=== PATIENT | female | born 1970 | race Caucasian/White ===

== ENCOUNTER 2021-01-16 21:26 | Observation (INO) ==
--- NOTE | 2021-01-16 21:55 | Emergency Department Note ---
Impression & Plan Left sided abdominal pain, Nausea & vomiting ED Provider Note INFORMANT: Patient ED PROVIDER(S): Nehemiah Jiménez MD CHIEF COMPLAINT: Abdominal pain PLAN: Disposition: Still patient Condition: Good Outpatient prescription management: none Referral: None MEDICAL DECISION MAKING: Patient presented emerged department with acute abdominal pain. She had some distention on physical examination. She was nauseated and vomiting. The patient had an IV established. She was given Dilaudid and Zofran. She was hydrated with normal saline. On reassessment she was feeling somewhat better. She still had some distention and discomfort but it was much improved. She had an unremarkable CBC and chemistry panel. The patient underwent CT imaging and there was concerns for gastric volvulus. I did consult with Dr. Cruz of general surgery. She asked for the patient have an NG tube placed for stomach decompression and a KUB performed. She also recommended repeat CT imaging. She did evaluate the patient in the ER. KUB revealed the NG tube to be in place. Repeat CT imaging is pending at this time. The case was signed out to Dr. Fatima at the change of shift. Please see his note for disposition and details. Triage Nursing notes reviewed and agree them. Vital Signs: reviewed and remarkable for no significant abnormalities Differential diagnosis: PUD, pancreatitis, biliary pathology, hernia, appendicitis, ovarian cyst, ovarian torsion, infections, diverticulitis, UTI, obstruction, mesenteric ischemia, aortic pathology, inflammatory bowel disease, renal colic, volvulus, constipation, as well as other pathologies. Diagnostics interpreted by me: ECG: none Cardiac Monitoring: Cardiac monitoring ordered by me: The patient was placed on continuous cardiac monitoring and observed. It revealed a normal sinus rhythm at 89 beats per minute without ectopy or evidence of dysrhythmia. Imaging studies: CT ABD/PELVIS: FINDINGS: Mild dependent changes seen at the lung bases. No pneumoperitoneum. No pneumatosis. No fractures within the visualized osseous structures. The unenhanced liver, gallbladder, adrenal glands, and kidneys are unremarkable. No renal stones or hydronephrosis. No retroperitoneal lymphadenopathy. Normal caliber abdominal aorta. There is a left retroaortic renal vein. The spleen and pancreatic tail are displaced inferiorly by the distended stomach. The stomach is fluid-filled and has abnormal configuration with the antrum overlying the gastric cardia. Therefore, this is concerning for a gastric volvulus. No dilated loops of small bowel identified. The bladder is unremarkable. Prior hysterec amos. Normal appendix. IMPRESSION: Distended and fluid-filled stomach with an abnormal configuration with the antrum overlying the gastric cardia. 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 Surgical consultation recommended. HPI: The patient is a 51 year old female who presents to the Emergency Room with complaints of abdominal pain. This started 2 hrs ago and is worsening. The patient also notes the following associated symptoms, nausea and vomiting. Pain seems to be worse on the left side. It does radiate towards her back. The patient has found no relieving factors. Current pain is rated as 8/10. Pt denies LOC, headache, fevers, chills, diaphoresis, visual changes, neck pain, chest pain, breathing difficulties, back pain, melena, hematochezia, urinary symptoms, numbness, weakness, lymphadenopathy, rash, or other complaints. ROS: See above HPI for pertinent positives & negatives. A total of 10 systems reviewed and were otherwise negative. PAST MEDICAL HISTORY:See Below , breast cancer, hypothyroidism PAST SURGICAL HISTORY:See Below, hysterectomy FAMILY HISTORY:See Below SOCIAL HISTORY:See Below, smoker HOME MEDICATIONS:See Below ALLERGIES:See Below VITALS:See Below PHYSICAL EXAMINATION: GENERAL: Awake, alert, uncomfortable-appearing, in a mild distress HENT: Normocephalic, atraumatic. Oropharynx unremarkable. EYES: Normal conjunctiva. Sclera non-icteric. NECK: Inspection normal. Non-tender. Supple. No nuchal rigidity. FROM. No masses. RESPIRATORY: Clear to auscultation. No wheezes. No rales. Normal respiratory effort. CARDIAC: Normal rate. Normal rhythm. No murmurs. No rubs. Extremities warm and well perfused. Pulses equal. No JVD. GI: Soft, mildly-distended. Diffuse tenderness to palpation. Mild rebound .mild guarding. No masses. RECTAL: Deferred. MUSCULOSKELETAL: Atraumatic. Chest examination reveals no tenderness. The back is symmetrical on inspection without obvious abnormality. There is no CVA tenderness to palpation. No joint edema. LOWER EXTREMITIES: Calves are equal size bilaterally and non-tender. No edema. No discoloration. NEURO: Normal sensorium. No sensory or motor deficits noted. SKIN: No rash or jaundice noted. 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 Beliefs That Will Affect Care: None Current Living Situation: Significant Other Feels Safe at Home: Yes Assistive Devices: None Allergies Allergies Allergy/AdvReac Type Severity Reaction Status Date / Time Penicillins Allergy Intermediate Hives Verified 01/16/21 22:17 Home Meds Home Medications Medication Instructions Recorded Confirmed Loly-D 24 Hour 1 tab PO QAM 01/16/21 01/16/21 levothyroxine [Synthroid] 50 mcg PO DAILY 01/16/21 01/16/21 topiramate 1.5 tab PO BID 01/16/21 01/16/21 Results & Data (ED) Vital Signs Vital Signs - 24 hr 01/16/21 21:32 01/16/21 22:12 01/16/21 22:14 Temperature 36.5 C Temperature Source Temporal Artery Scan Pulse Rate 84 81 Pulse Rate [Bilateral Apical] 81 Pulse Rate from SpO2 Sensor 79 Respiratory Rate 18 20 20 Respiratory Effort / Characteristics Non-Labored Spontaneous Respiratory Depth Normal Respiratory Pattern Regular Blood Pressure 150/82 H 125/95 Blood Pressure [Left Arm] 125/95 Blood Pressure Mean 104 105 Blood Pressure Mean [Left Arm] 105 Blood Pressure Position Sitting Pulse Oximetry 100 100 100 Oxygen Delivery Method Room Air Room Air Sepsis Recent Fever Within 48 Hours No Sepsis New/Unexplained Change in Mental Status N/A Sepsis Action Taken by Nursing No Action Required 01/16/21 22:16 01/16/21 22:44 01/16/21 22:47 Temperature Temperature Source Pulse Rate 80 95 H Pulse Rate [Bilateral Apical] 89 Pulse Rate from SpO2 Sensor 82 Respiratory Rate 15 20 20 Respiratory Effort / Characteristics Respiratory Depth Respiratory Pattern Blood Pressure Blood Pressure [Left Arm] 137/84 Blood Pressure Mean Blood Pressure Mean [Left Arm] 101 Blood Pressure Position Pulse Oximetry 100 99 Oxygen Delivery Method Room Air Sepsis Recent Fever Within 48 Hours Sepsis New/Unexplained Change in Mental Status Sepsis Action Taken by Nursing 01/16/21 22:48 01/16/21 23:00 01/16/21 23:30 Temperature Temperature Source Pulse Rate 87 80 93 H Pulse Rate [Bilateral Apical] Pulse Rate from SpO2 Sensor 89 82 92 H Respiratory Rate 16 16 17 Respiratory Effort / Characteristics Respiratory Depth Respiratory Pattern Blood Pressure 137/84 Blood Pressure [Left Arm] Blood Pressure Mean 101 Blood Pressure Mean [Left Arm] Blood Pressure Position Pulse Oximetry 99 100 99 Oxygen Delivery Method Sepsis Recent Fever Within 48 Hours Sepsis New/Unexplained Change in Mental Status Sepsis Action Taken by Nursing 01/17/21 01:05 01/17/21 01:08 01/17/21 01:30 Temperature Temperature Source Pulse Rate 98 H 94 H 74 Pulse Rate [Bilateral Apical] Pulse Rate from SpO2 Sensor 95 H Respiratory Rate 17 14 Respiratory Effort / Characteristics Respiratory Depth Respiratory Pattern Blood Pressure 141/97 H 126/77 Blood Pressure [Left Arm] Blood Pressure Mean 111 93 Blood Pressure Mean [Left Arm] Blood Pressure Position Pulse Oximetry 97 97 Oxygen Delivery Method Sepsis Recent Fever Within 48 Hours Sepsis New/Unexplained Change in Mental Status Sepsis Action Taken by Nursing 01/17/21 02:00 01/17/21 02:30 01/17/21 03:00 Temperature Temperature Source Pulse Rate 75 80 83 Pulse Rate [Bilateral Apical] Pulse Rate from SpO2 Sensor 75 81 Respiratory Rate 14 14 13 Respiratory Effort / Characteristics Respiratory Depth Respiratory Pattern Blood Pressure 142/89 H 127/81 111/73 Blood Pressure [Left Arm] Blood Pressure Mean 106 96 85 Blood Pressure Mean [Left Arm] Blood Pressure Position Pulse Oximetry 99 97 92 Oxygen Delivery Method Sepsis Recent Fever Within 48 Hours Sepsis New/Unexplained Change in Mental Status Sepsis Action Taken by Nursing 01/17/21 03:30 01/17/21 04:00 Temperature Temperature Source Pulse Rate 105 H 82 Pulse Rate [Bilateral Apical] Pulse Rate from SpO2 Sensor Respiratory Rate 18 14 Respiratory Effort / Characteristics Respiratory Depth Respiratory Pattern Blood Pressure 113/56 L 123/76 Blood Pressure [Left Arm] Blood Pressure Mean 75 91 Blood Pressure Mean [Left Arm] Blood Pressure Position Pulse Oximetry 97 98 Oxygen Delivery Method Sepsis Recent Fever Within 48 Hours Sepsis New/Unexplained Change in Mental Status Sepsis Action Taken by Nursing Laboratory Data Result diagrams: 01/17/21 11:10 01/17/21 11:08 Lab Results 01/16/21 01/16/21 01/16/21 Range/Units 21:59 21:59 23:45 WBC 8.45 (4.8-10.8) K/uL RBC 4.68 (4.2-5.4) M/uL Hgb 14.5 (12.0-16.0) g/dL Hct 41.7 (37-47) % MCV 89.1 (80-100) fL MCH 31.0 (25-34) pg MCHC 34.8 (32-36) g/dL RDW Std Deviation 39.2 (36.4-46.3) fL RDW Coeff of Quinn 12.2 (11.5-14.5) % Plt Count 290 (130-400) K/uL MPV 10.5 H (7.4-10.4) fL Immature Gran % (Auto) 0.1 % Neut % (Auto) 81.4 % Lymph % (Auto) 11.4 % Porter % (Auto) 5.9 % Eos % (Auto) 0.8 % Baso % (Auto) 0.4 % Neut # (Auto) 6.88 H (1.4-6.5) K/uL Lymph # (Auto) 0.96 L (1.2-3.4) K/uL Porter # (Auto) 0.50 (0.11-0.59) K/uL Eos # (Auto) 0.07 (0-0.5) K/uL Baso # (Auto) 0.03 (0-0.2) K/uL Immature Gran # (Auto) 0.01 (0.00-0.02) K/uL Sodium 143 (136-145) mmol/L Potassium 3.3 L (3.5-5.1) mmol/L Chloride 110 H (98-107) mmol/L Carbon Dioxide 27 (21-32) mmol/L Anion Gap 6.0 (3-11) BUN 24 H (7-18) mg/dl Creatinine 0.97 (0.6-1.2) mg/dl Est Cr Clr Drug Dosing 55.8 ml/min Est GFR ( Amer) 77.8 ml/min Est GFR (Non-Af Amer) 67.2 ml/min BUN/Creatinine Ratio 24.5 H (10-20) Glucose 115 H (70-99) mg/dl Calcium 9.6 (8.5-10.1) mg/dl Total Bilirubin 0.5 (0.2-1) mg/dl AST 11 L (15-37) U/L ALT 19 (12-78) U/L Alkaline Phosphatase 68 (45-117) U/L Total Protein 7.3 (6.4-8.2) gm/dl Albumin 4.1 (3.4-5.0) gm/dl Globulin 3.2 (2.5-4.0) gm/dl Albumin/Globulin Ratio 1.3 (0.9-2) Lipase 285 (73-393) U/L Urine Color Yellow Urine Appearance Turbid A (Clear) Urine pH 7.5 (4.5-7.5) Ur Specific [place] 1.013 (1.000-1.030) Urine Protein Negative (Negative) Urine Glucose (UA) Negative (Negative) Urine Ketones Negative (Negative) Urine Blood Negative (Negative) Urine Nitrite Negative (Negative) Urine Bilirubin Negative (Negative) Urine Urobilinogen Negative (Negative) Ur Leukocyte Esterase Negative (Negative) Urine WBC (Auto) 1-5 (0-5) /hpf Urine RBC (Auto) 0-4 (0-4) /hpf U Hyaline Cast (Auto) 0 (0-5) /lpf U Epithel Cells (Auto) >30 H (0-5) /lpf Urine Bacteria (Auto) Negative (Negative) Amorphous Sediment Present A (None Prsent) COVID-19 Eval Order SARS-CoV-2 (PCR) (Negative) 01/16/21 01/16/21 Range/Units 23:48 23:48 WBC (4.8-10.8) K/uL RBC (4.2-5.4) M/uL Hgb (12.0-16.0) g/dL Hct (37-47) % MCV (80-100) fL MCH (25-34) pg MCHC (32-36) g/dL RDW Std Deviation (36.4-46.3) fL RDW Coeff of Quinn (11.5-14.5) % Plt Count (130-400) K/uL MPV (7.4-10.4) fL Immature Gran % (Auto) % Neut % (Auto) % Lymph % (Auto) % Porter % (Auto) % Eos % (Auto) % Baso % (Auto) % Neut # (Auto) (1.4-6.5) K/uL Lymph # (Auto) (1.2-3.4) K/uL Porter # (Auto) (0.11-0.59) K/uL Eos # (Auto) (0-0.5) K/uL Baso # (Auto) (0-0.2) K/uL Immature Gran # (Auto) (0.00-0.02) K/uL Sodium (136-145) mmol/L Potassium (3.5-5.1) mmol/L Chloride (98-107) mmol/L Carbon Dioxide (21-32) mmol/L Anion Gap (3-11) BUN (7-18) mg/dl Creatinine (0.6-1.2) mg/dl Est Cr Clr Drug Dosing ml/min Est GFR ( Amer) ml/min Est GFR (Non-Af Amer) ml/min BUN/Creatinine Ratio (10-20) Glucose (70-99) mg/dl Calcium (8.5-10.1) mg/dl Total Bilirubin (0.2-1) mg/dl AST (15-37) U/L ALT (12-78) U/L Alkaline Phosphatase (45-117) U/L Total Protein (6.4-8.2) gm/dl Albumin (3.4-5.0) gm/dl Globulin (2.5-4.0) gm/dl Albumin/Globulin Ratio (0.9-2) Lipase (73-393) U/L Urine Color Urine Appearance (Clear) Urine pH (4.5-7.5) Ur Specific [place] (1.000-1.030) Urine Protein (Negative) Urine Glucose (UA) (Negative) Urine Ketones (Negative) Urine Blood (Negative) Urine Nitrite (Negative) Urine Bilirubin (Negative) Urine Urobilinogen (Negative) Ur Leukocyte Esterase (Negative) Urine WBC (Auto) (0-5) /hpf Urine RBC (Auto) (0-4) /hpf U Hyaline Cast (Auto) (0-5) /lpf U Epithel Cells (Auto) (0-5) /lpf Urine Bacteria (Auto) (Negative) Amorphous Sediment (None Prsent) COVID-19 Eval Order Covid19 at [facility] SARS-CoV-2 (PCR) NEGATIVE (Negative) Administered Medications Discontinued Medications Diphenhydramine HCl (Diphenhydramine 50 Mg/Ml Vial) 12.5 mg IV NOW STA Stop: 01/17/21 10:34 Last Admin: 01/17/21 11:02 Dose: 12.5 mg Documented by: [id number] Hydromorphone HCl (Hydromorphone Inj 0.5 Mg/0.5 Ml Syr) 0.5 mg IV Q15M PRN PRN Reason: Pain Stop: 01/30/21 21:55 Last Admin: 01/17/21 00:53 Dose: 0.5 mg Documented by: [id number] Admin: 01/16/21 22:08 Dose: 0.5 mg Documented by: [id number] Hydromorphone HCl (Hydromorphone Inj 0.5 Mg/0.5 Ml Syr) 0.5 mg IV NOW STA Stop: 01/17/21 04:48 Last Admin: 01/17/21 04:51 Dose: 0.5 mg Documented by: [id number] Hydromorphone HCl (Hydromorphone Inj 0.5 Mg/0.5 Ml Syr) 0.25 mg IV Q4H PRN PRN Reason: Severe Pain Stop: 01/31/21 06:31 Last Admin: 01/17/21 08:30 Dose: 0.25 mg Documented by: [id number] Sodium Chloride (Nss 1000ml) 1,000 mls @ 999 mls/hr IV .Q1H1M STA Stop: 01/16/21 22:56 Last Infusion: 01/16/21 23:36 Dose: 0 mls/hr Documented by: [id number] Admin: 01/16/21 22:08 Dose: 999 mls/hr Documented by: [id number] Lorazepam (Ativan) 0.5 mg in 1 mls @ 1 mls/min IV NOW STA Stop: 01/17/21 02:05 Last Admin: 01/17/21 02:13 Dose: 1 mls/min Documented by: [id number] Famotidine 20 mg/ Syringe 5 mls @ 2.5 mls/min IV Q12H LENORA Stop: 02/16/21 07:59 Last Admin: 01/17/21 08:26 Dose: 2.5 mls/min Documented by: [id number] Potassium Chloride/Sodium Chloride (Normal Saline W/20 Meq Kcl) 20 meq in 1,000 mls @ 100 mls/hr IV .Q10H LENORA Stop: 02/16/21 06:59 Last Admin: 01/17/21 08:21 Dose: 100 mls/hr Documented by: [id number] Morphine Sulfate (Morphine Sulfate 2 Mg/Ml Carp) 1 mg IV NOW STA Stop: 01/17/21 10:35 Last Admin: 01/17/21 11:02 Dose: 1 mg Documented by: [id number] Ondansetron HCl (Ondansetron Inj 2 Mg/Ml 2 Ml Vial) 4 mg IV NOW STA Stop: 01/16/21 21:57 Last Admin: 01/16/21 22:08 Dose: 4 mg Documented by: [id number] Ondansetron HCl (Ondansetron Inj 2 Mg/Ml 2 Ml Vial) 4 mg IV Q6H PRN PRN Reason: Nausea Stop: 02/16/21 06:31 Last Admin: 01/17/21 08:31 Dose: 4 mg Documented by: [id number] Imaging Data Radiologist's Impression: KUB X-Ray 01/16/21 23:27 KUB HISTORY: Status post placement of an enteric tube NGT placement COMPARISON: CT abdomen and pelvis 01/17/2021 FINDINGS: Status post placement of an enteric tube, distal tip projected superiorly within the left midabdomen. Nonobstructive bowel gas pattern. The lower abdomen is outside the field of view. Roots of the left axilla. No renal calculi. No ureteral calculi. No pneumoperitoneum or pneumatosis. No fracture. IMPRESSION: Status post placement of an enteric tube with distal tip in the expected location of the gastric body. ACT 112: Negative or not required by law. The above report was generated using voice recognition software. It may contain grammatical, syntax or spelling errors. Electronically signed by: Thomas Payton M.D. 01/17/2021 7:42 AM Abdomen/Pelvis CT 01/17/21 00:[address] WITHOUT CONTRAST CT DOSE: 432.12 mGy.cm HISTORY: Follow up study in a patient with suggested gastric volvulus. Status post placement of an enteric tube Eval after NG tube placement for suspected gastric TECHNIQUE: Multiaxial CT images of the abdomen and pelvis were performed without contrast. A dose lowering technique was utilized adhering to the principles of ALARA. COMPARISON STUDY: CT abdomen pelvis 01/16/2021 FINDINGS: The imaged inferior cardiac chambers are unremarkable. Mild bibasilar atelectasis. No pneumatosis or pneumoperitoneum. Trace perisplenic ascites. The spleen is slightly displaced 5 abnormally positioned stomach. The pancreas, adrenal glands, gallbladder and liver appear unremarkable. Unremarkable liver k idneys, and urinary bladder. Hysterectomy. No adnexal mass lesion. Aorta and IVC are unremarkable. No adenopathy. Volvulus of the stomach is redemonstrated with a suggested mesentero-axial configuration. Mild inflammatory stranding surrounds the stomach. Status post placement of an enteric tube with distal tip in the region of the gastric body. Slightly decreased gastric distention. No bowel obstruction or bowel wall thickening. Normal appendix. Unremarkable soft tissues and breast parenchyma. No acute fracture. IMPRESSION: 1. 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 Status post placement of an enteric tube terminating within the gastric body. There is slightly decreased gastric distention. 2. Mild stranding surrounding the stomach with trace left upper quadrant abdominal ascites. ACT 112: Negative or not required by law. The above report was generated using voice recognition software. It may contain grammatical, syntax or spelling errors. Electronically signed by: Thomas Payton M.D. 01/17/2021 9:35 AM Discharge Plan Visit Data Chief Complaint: Abdominal Pain Stated Complaint: ABDOMINAL PAIN, ABDOMEN DISTENDED ED Provider: Yvon Fatima Discharge Problem: Left sided abdominal pain, Nausea & vomiting Patient Disposition: Admitted As Inpatient Discharge Instructions Interventions: ED Discharge Assessment Last Done: 01/17/21 05:14
[2021-01-16] MEDS ORDERED: ONDANSETRON INJ 2 MG/ML 2 ML VIAL IV STA (21:56)
[2021-01-16] MEDS ORDERED: SODIUM CHLORIDE 0.9% 1,000 ML IV STA (21:56)
[2021-01-16] MEDS: HYDROmorphone INJ 0.5 MG/0.5 ML SYR IV PRN (22:08)
[2021-01-16 22:22] LABS: Basophils # (auto) 0.03 K/uL (0-0.2); Basophils % (auto) 0.4 %; Eosinophils # (auto) 0.07 K/uL (0-0.5); Eosinophils % (auto) 0.8 %; Hematocrit (blood only) 41.7 % (37-47); Hemoglobin 14.5 g/dL (12.0-16.0); Immature Granulocytes # (auto) 0.01 K/uL (0.00-0.02); Immature Granulocytes % (auto) 0.1 %; Lymphocytes # (auto) 0.96 K/uL (1.2-3.4); Lymphocytes % (auto) 11.4 %; Mean Corpuscular Hgb Conc 34.8 g/dL (32-36); Mean Corpuscular Volume 89.1 fL (80-100); Mean Platelet Volume 10.5 fL (7.4-10.4); Monocytes % (auto) 5.9 %; Neutrophils # (auto) 6.88 K/uL (1.4-6.5); Neutrophils % (auto) 81.4 %; Platelet Count 290 K/uL (130-400); RDW Coefficient of Variation 12.2 % (11.5-14.5); RDW Standard Deviation 39.2 fL (36.4-46.3); Red Blood Count 4.68 M/uL (4.2-5.4); White Blood Count 8.45 K/uL (4.8-10.8)
[2021-01-16 22:43] LABS: Albumin Level 4.1 gm/dl (3.4-5.0); BUN Creatinine Ratio 24.5 (10-20); Calcium 9.6 mg/dl (8.5-10.1); Creatinine Clr Calc Pharmacy 55.8 ml/min; Est GFR (African American) 77.8 ml/min; Est GFR (Non-African American) 67.2 ml/min; Potassium 3.3 mmol/L (3.5-5.1)
[2021-01-16 22:45] LABS: Albumin Globulin Ratio 1.3 (0.9-2); Bilirubin,Total 0.5 mg/dl (0.2-1); Globulin 3.2 gm/dl (2.5-4.0); Total Protein 7.3 gm/dl (6.4-8.2)
--- NOTE | 2021-01-16 23:03 | CT Scan Report ---
ABDOMEN AND PELVIS CT WITHOUT CONTRAST CT DOSE: 387.54 mGy.cm HISTORY: nausea, left sided abd pain, vomiting TECHNIQUE: Multiaxial CT images of the abdomen and pelvis were performed without contrast. A dose lo wering technique was utilized adhering to the principles of ALARA. COMPARISON STUDY: None. FINDINGS: Mild dependent changes seen at the lung bases. No pneumoperitoneum. No pneumatosis. No frac tures within the visualized osseous structures. The unenhanced liver, gallbladder, adrenal glands, an d kidneys are unremarkable. No renal stones or hydronephrosis. No retroperitoneal lymphadenopathy. No rmal caliber abdominal aorta. There is a left retroaortic renal vein. The spleen and pancreatic tail are displaced inferiorly by the distended stomach. The stomach is fluid-filled and has abnormal confi guration with the antrum overlying the gastric cardia. Therefore, this is concerning for a gastric vo lvulus. No dilated loops of small bowel identified. The bladder is unremarkable. Prior hysterectomy. Normal appendix. IMPRESSION: Distended and fluid-filled stomach with an abnormal configuration with the antrum overlying the gastr ic cardia. 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 Surgical consultation recommended. ACT 112: Negative or not required by law. Electronically signed by: Braulio Fontanez M.D. 01/16/2021 11:01 PM
[2021-01-17 00:14] LABS: Appearance Urine Turbid (Clear); Bacteria Urine Automated Negative (Negative); Bilirubin Urine Negative (Negative); Blood Urine Negative (Negative); Color Urine Yellow; Epithelial Cell Urine Auto >30 /lpf (0-5); Glucose Urine UA Negative (Negative); Ketones Urine Negative (Negative); Leukocyte Esterase Urine Negative (Negative); Nitrite Urine Negative (Negative); Protein Urine Negative (Negative); Specific Gravity Urine 1.013 (1.000-1.030); Urobilinogen Urine Negative (Negative); pH Urine 7.5 (4.5-7.5)
--- NOTE | 2021-01-17 00:15 | Consultation ---
Date of Consultation January 17, 2021 Assessment & Plan (1) Acute gastric volvulus: Discussed imaging findings with patient and . While there is no clinical sign of ischemia yet on labs, she is very tender and concern for ischemia developing remains. Reviewed the use of nasogastric decompression and my recommendation for surgical intervention with reduction of the volvulus and gastropexy with gastrostomy tube. Reviewed that the tube would need to stay in for at least 6 weeks prior to removal to allow for the stomach to stick to the anterior abdominal wall. Discussed the possibility of endoscopic decompression but that this is generally reserved for patients who are too high risk for surgery and carries a risk of gastric perforation. As she is reluctant to have surgery here (would prefer closer to home), we discussed ng placement and then repeating the CT scan. If better and volvulus spontaneously reduces with ng decompression, can admit here and watch for a day or two. If still present, she should strongly consider surgery - either here or closer to home. Risk of waiting (ischemia leading to a larger operation with need for partial gastrectomy) discussed. All questions answered. Present on Admission?: Yes (2) Left sided abdominal pain: Due to gastric volvulus. Present on Admission?: Yes (3) Nausea & vomiting: NG decompression Present on Admission?: Yes History of Present Illness Requesting Physician: Nehemiah Jiménez MD Reason for Consultation: gastric volvulus History of Present Illness 51 yr old woman who presents with acute onset of upper abdominal pain. Started earlier this evening, crampy, located in bilateral upper abdomens. Thought she had a stomachache. They drove out from [place] and when stopped to get food along the way, the pain got worse. This continued with a feeling of fullness and feeling like the food was refluxing back into esophagus. When they arrived at the cabin, she thought she would try to vomit. After she bent over, she could not straighten back up with 10/10, sharp, cramping abdominal pain under both ribcages. Took her breath away, no similar episodes before. Came to ER for evaluation. No fevers/ chills. No change in bowel habits. She has received pain meds and pain is now 3-4/10 at rest, 5- 6/10 with movement. Allergies Allergy/AdvReac Type Severity Reaction Status Date / Time Penicillins Allergy Intermediate Hives Verified 01/16/21 22:17 Home Medications Medication Instructions Recorded Confirmed Type fexofenadine-pseudoephedrine 1 tab PO QAM 01/16/21 01/16/21 History [Loly-D 24 Hour] levothyroxine [Synthroid] 50 mcg PO DAILY 01/16/21 01/16/21 History topiramate 1.5 tab PO BID 01/16/21 01/16/21 History Patient History Medical History (Updated 01/17/21 @ 00:22 by Cassandra Curz MD) Breast cancer Surgical History (Updated 01/17/21 @ 00:21 by Cassandra Cruz MD) H/O: hysterectomy Previous section S/P lumpectomy of breast Social History Smoking Status: Current every day smoker Tobacco Type: Cigarettes Preferred Language: Occitan Feels Safe at Home: Yes Review of Systems Review of Systems: All systems reviewed & are unremarkable except as noted in HPI & below Physical Exam Constitutional: WD/WN, vitals as above Eyes: PERRL, conjunctivae normal, anicteric sclerae Neck: trachea midline Respiratory: normal respiratory effort, lungs clear to auscultation Cardiovascular: RRR, no murmur, no edema Gastrointestinal (Abdomen): Inspection/Auscultation: abdomen normal to inspection and normal bowel sounds; abdomen not distended Percussion/Palpation: + abdomen tender (LUQ and LLQ), + guarding (LUQ) and abdomen soft; no hernia Musculoskeletal: no cyanosis or clubbing, extremities motor strength 5/5 Neurologic: CN's II-XI intact bilaterally and awake; no focal motor deficits Psychiatric: A+Ox3, euthymic affect Results & Data ([facility]) Vital Signs (Past 12 Hours) Vital Signs Temp Pulse Pulse Resp BP BP Pulse Ox 01/16/21 22:47 89 20 137/84 99 01/16/21 22:14 81 20 125/95 100 01/16/21 21:32 36.5 C 84 18 150/82 H 100 Laboratory Results 01/16/21 01/16/21 01/16/21 Range/Units 23:48 23:48 23:45 WBC (4.8-10.8) K/uL RBC (4.2-5.4) M/uL Hgb (12.0-16.0) g/dL Hct (37-47) % MCV (80-100) fL MCH (25-34) pg MCHC (32-36) g/dL RDW Std Deviation (36.4-46.3) fL RDW Coeff of Quinn (11.5-14.5) % Plt Count (130-400) K/uL MPV (7.4-10.4) fL Immature Gran % (Auto) % Neut % (Auto) % Lymph % (Auto) % [place] % (Auto) % Eos % (Auto) % Baso % (Auto) % Neut # (Auto) (1.4-6.5) K/uL Lymph # (Auto) (1.2-3.4) K/uL [place] # (Auto) (0.11-0.59) K/uL Eos # (Auto) (0-0.5) K/uL Baso # (Auto) (0-0.2) K/uL Immature Gran # (Auto) (0.00-0.02) K/uL Sodium (136-145) mmol/L Potassium (3.5-5.1) mmol/L Chloride (98-107) mmol/L Carbon Dioxide (21-32) mmol/L Anion Gap (3-11) BUN (7-18) mg/dl Creatinine (0.6-1.2) mg/dl Est Cr Clr Drug Dosing ml/min Est GFR ( Amer) ml/min Est GFR (Non-Af Amer) ml/min BUN/Creatinine Ratio (10-20) Glucose (70-99) mg/dl Calcium (8.5-10.1) mg/dl Total Bilirubin (0.2-1) mg/dl AST (15-37) U/L ALT (12-78) U/L Alkaline Phosphatase (45-117) U/L Total Protein (6.4-8.2) gm/dl Albumin (3.4-5.0) gm/dl Globulin (2.5-4.0) gm/dl Albumin/Globulin Ratio (0.9-2) Lipase (73-393) U/L Urine Color Yellow Urine Appearance Turbid A (Clear) Urine pH 7.5 (4.5-7.5) Ur Specific [place] 1.013 (1.000-1.030) Urine Protein Negative (Negative) Urine Glucose (UA) Negative (Negative) Urine Ketones Negative (Negative) Urine Blood Negative (Negative) Urine Nitrite Negative (Negative) Urine Bilirubin Negative (Negative) Urine Urobilinogen Negative (Negative) Ur Leukocyte Esterase Negative (Negative) Urine WBC (Auto) Pending Urine RBC (Auto) Pending U Hyaline Cast (Auto) Pending U Epithel Cells (Auto) Pending Urine Bacteria (Auto) Pending COVID-19 Eval Order Covid19 at [facility] SARS-CoV-2 (PCR) Pending 01/16/21 01/16/21 Range/Units 21:59 21:59 WBC 8.45 (4.8-10.8) K/uL RBC 4.68 (4.2-5.4) M/uL Hgb 14.5 (12.0-16.0) g/dL Hct 41.7 (37-47) % MCV 89.1 (80-100) fL MCH 31.0 (25-34) pg MCHC 34.8 (32-36) g/dL RDW Std Deviation 39.2 (36.4-46.3) fL RDW Coeff of Quinn 12.2 (11.5-14.5) % Plt Count 290 (130-400) K/uL MPV 10.5 H (7.4-10.4) fL Immature Gran % (Auto) 0.1 % Neut % (Auto) 81.4 % Lymph % (Auto) 11.4 % [place] % (Auto) 5.9 % Eos % (Auto) 0.8 % Baso % (Auto) 0.4 % Neut # (Auto) 6.88 H (1.4-6.5) K/uL Lymph # (Auto) 0.96 L (1.2-3.4) K/uL [place] # (Auto) 0.50 (0.11-0.59) K/uL Eos # (Auto) 0.07 (0-0.5) K/uL Baso # (Auto) 0.03 (0-0.2) K/uL Immature Gran # (Auto) 0.01 (0.00-0.02) K/uL Sodium 143 (136-145) mmol/L Potassium 3.3 L (3.5-5.1) mmol/L Chloride 110 H (98-107) mmol/L Carbon Dioxide 27 (21-32) mmol/L Anion Gap 6.0 (3-11) BUN 24 H (7-18) mg/dl Creatinine 0.97 (0.6-1.2) mg/dl Est Cr Clr Drug Dosing 55.8 ml/min Est GFR ( Amer) 77.8 ml/min Est GFR (Non-Af Amer) 67.2 ml/min BUN/Creatinine Ratio 24.5 H (10-20) Glucose 115 H (70-99) mg/dl Calcium 9.6 (8.5-10.1) mg/dl Total Bilirubin 0.5 (0.2-1) mg/dl AST 11 L (15-37) U/L ALT 19 (12-78) U/L Alkaline Phosphatase 68 (45-117) U/L Total Protein 7.3 (6.4-8.2) gm/dl Albumin 4.1 (3.4-5.0) gm/dl Globulin 3.2 (2.5-4.0) gm/dl Albumin/Globulin Ratio 1.3 (0.9-2) Lipase 285 (73-393) U/L Urine Color Urine Appearance (Clear) Urine pH (4.5-7.5) Ur Specific [place] (1.000-1.030) Urine Protein (Negative) Urine Glucose (UA) (Negative) Urine Ketones (Negative) Urine Blood (Negative) Urine Nitrite (Negative) Urine Bilirubin (Negative) Urine Urobilinogen (Negative) Ur Leukocyte Esterase (Negative) Urine WBC (Auto) Urine RBC (Auto) U Hyaline Cast (Auto) U Epithel Cells (Auto) Urine Bacteria (Auto) COVID-19 Eval Order SARS-CoV-2 (PCR) Diagnostic Findings CT scan abdomen/ pelvis personally reviewed with pt - shows a distended fluid filled stomach with possible gastric volvulus, no perforation
[2021-01-17 00:29] LABS: Amorphous Sediment Urine Present (None Prsent); RBC Urine Automated 0-4 /hpf (0-4)
[2021-01-17 00:31] LABS: Cast Urine Automated 0 /lpf (0-5)
--- NOTE | 2021-01-17 00:46 | Emergency Department Note ---
ED Visit Note ED Physician Sign Out Note: 51 yr old female evaluated and diagnosed by Dr Jiménez with Gastric Volvulus. She was seen by Gen Surg and NG tube placed. She was signed out to me pending repeat CT a/p with plan for me to contact Dr Cruz (who has already seen patient) to determine disposition. Patient evaluated and just receiving Dilaudid for nasal discomfort. Notes abdominal discomfort/nausea much improved. En route to CT. "CT ABDOMEN & PELVIS Without Contrast: Comparison to January 17, 2021. There is a nasogastric tube extending into the stomach which is less distended than on the comparison study. There is an abnormal horizontal configuration of the stomach without signs of obstruction of the gastric inflow or outflow to suggest volvulus at this point in time. Moderate amount of stool in the cecum measuring 6 cm possible mild constipation. The appendix is normal. Mild gaseous distention of large and small bowel loops suggest mild ileus. No focal bowel wall inflammation is seen. The liver, gallbladder, spleen, pancreas, adrenal glands, and kidneys appear within normal limits. Skeletal structures appear within normal limits. Radiologist: Zachariah Christopher MD" Patient re-evaluated on return of CT results and notes some nasal discomfort and anxious but otherwise OK. Given small dose ativan for comfort. Reviewed CT findings with Dr Cruz who notes that patient should be admitted to medicine with GI evaluation for possible scope to rule out obstruction. Patient and comfortable with this plan. I consulted Dr Chung for further management. Patient given some dialudid PRN for discomfort from NG tube. No return of abdominal pain and CT did confirm NG tube in stomach. Yvon Fatima MD
[2021-01-17] MEDS: HYDROmorphone INJ 0.5 MG/0.5 ML SYR IV PRN (00:53)
[2021-01-17] MEDS ORDERED: LORazepam 0.5 MG/1 ML VIAL IV STA (02:04)
--- NOTE | 2021-01-17 04:11 | History & Physical Report ---
Date of Service January 17, 2021 Assessment & Plan (1) Acute gastric volvulus: Acute gastric volvulus/mild ileus- Initial CT of abdomen and pelvis suggested acute gastric volvulus. Patient then had NG tube placed to low intermittent suction. Repeat CT suggested a mild ileus and possible distal constipation. Patient had been given Dilaudid IV and Ativan IV by the ED with improvement in symptoms. Admit to medical surgical floor NPO NSS + KCl 20 mEq at 100 mils per hour Zofran 4 mg IV every 6 hours as needed Famotidine 20 mg IV every 12 hours Acetaminophen 1 g IV every 8 hours as needed mild pain or fever Dilaudid 0.25 mg IV every 4 hours as needed severe pain Consult general surgery Consult gastroenterology Patient is from [facility], and will return to that area for any definitive treatment if needed Present on Admission?: Yes (2) Ileus: See above Present on Admission?: Yes (3) Nausea & vomiting: See above Present on Admission?: Yes (4) Hypokalemia: Placed on IV fluids as noted, and repeat labs in a.m. Present on Admission?: Yes (5) Previous section: History of previous C-sections x2 Present on Admission?: Yes (6) Hypothyroidism: Hold levothyroxine at this time Present on Admission?: Yes History of Present Illness Chief Complaint: The patient presents to the emergency department with acute onset of severe abdominal pain, with urge to have a bowel movement, but being unable to do so. Primary Care Provider: NO PCP The patient is a 51-year-old female with a past medical history including hypothyroidism and allergic rhinitis, who was traveling with her from [place], [place] to a local [place] to go [place] hunting. Her , who relays the history, reports that on their trip, they had stopped at a [employer], where she ate a few small pieces of food. Upon arrival, patient reported she had to go to the bathroom, but was unable to move her bowels, and due to the severity of pain, asked that she be taken to the emergency department. Work-up in the emergency department initially included a CT scan of abdomen pelvis which suggested a possible gastric volvulus. The patient then had an NG tube placed to low intermittent suction, and repeat CT scan was more suggestive of a mild ileus and constipation. General surgical consult recommended the patient be assessed by gastroenterology for possible endoscopic treatment if symptoms persisted. Allergies Allergy/AdvReac Type Severity Reaction Status Date / Time Penicillins Allergy Intermediate Hives Verified 01/16/21 22:17 Home Medications Medication Instructions Recorded Confirmed Type fexofenadine-pseudoephedrine 1 tab PO QAM 01/16/21 01/16/21 History [Loly-D 24 Hour] levothyroxine [Synthroid] 50 mcg PO DAILY 01/16/21 01/16/21 History topiramate 1.5 tab PO BID 01/16/21 01/16/21 History Past Med/Surg History Medical History (Updated 01/17/21 @ 05:20 by Vikas Chung MD) Breast cancer Hypothyroidism Surgical History (Updated 01/17/21 @ 05:16 by Vikas Chung MD) H/O: hysterectomy Previous section S/P lumpectomy of breast Social History Smoking Status: Current every day smoker Tobacco Type: Cigarettes Preferred Language: Greek Feels Safe at Home: Yes Review of Systems Review of Systems: The reports the patient was in her usual state of health until the symptoms of severe abdominal pain began upon arrival to the [facility]. She has been sedated due to severity of her pain, and therefore HPI and review of systems is limited by what her can relay. Physical Exam Physical Exam: The patient is awake, but somewhat sedated, well developed and well nourished, normocephalic and atraumatic, lying in bed and in no acute distress after receiving Dilaudid IV and Ativan IV from the ED HEENT--PERRL, EOMI, mucous membranes and oropharynx dry. Neck--supple. No JVD. No bruits. Thyroid normal, trachea midline, no adenopathy. Heart--normal S1 and S2. No murmurs, rubs or gallops. Lungs--clear bilaterally, no respiratory distress, no accessory muscle use. Abdomen--decreased bowel sounds. Generalized abdominal tenderness. Mildly distended. Extremities--no cyanosis or clubbing. No edema. Dermatologic--normal skin turgor, normal color, no abnormal lymph nodes, no rash. Neurologic--cranial nerves II through XII grossly intact. Rheumatologic--limited exam Psychiatric--sedated due to pain Results & Data Results & Data ([facility]) Vital Signs (Past 12 Hours) Vital Signs Temp Pulse Pulse Resp BP BP Pulse Ox 01/17/21 04:00 82 14 123/76 98 01/17/21 03:30 105 H 18 113/56 L 97 01/17/21 03:00 83 13 111/73 92 01/17/21 02:30 80 14 127/81 97 01/17/21 02:00 75 14 142/89 H 99 01/17/21 01:30 74 14 126/77 97 01/17/21 01:08 94 H 17 141/97 H 97 01/17/21 01:05 98 H 01/16/21 23:30 93 H 17 99 01/16/21 23:00 80 16 100 01/16/21 22:48 87 16 137/84 99 01/16/21 22:47 89 20 137/84 99 01/16/21 22:44 95 H 20 01/16/21 22:16 80 15 100 01/16/21 22:14 81 20 125/95 100 01/16/21 22:12 81 20 125/95 100 01/16/21 21:32 97.7 F 84 18 150/82 H 100 Laboratory Results Laboratory Results WBC 8.45 K/uL (4.8-10.8) 01/16/21 21:59 RBC 4.68 M/uL (4.2-5.4) 01/16/21 21:59 Hgb 14.5 g/dL (12.0-16.0) 01/16/21 21:59 Hct 41.7 % (37-47) 01/16/21 21:59 MCV 89.1 fL (80-100) 01/16/21 21:59 MCH 31.0 pg (25-34) 01/16/21 21:59 MCHC 34.8 g/dL (32-36) 01/16/21 21:59 RDW Std Deviation 39.2 fL (36.4-46.3) 01/16/21 21:59 RDW Coeff of Quinn 12.2 % (11.5-14.5) 01/16/21 21:59 Plt Count 290 K/uL (130-400) 01/16/21 21:59 MPV 10.5 fL (7.4-10.4) H 01/16/21 21:59 Immature Gran % (Auto) 0.1 % 01/16/21 21:59 Neut % (Auto) 81.4 % 01/16/21 21:59 Lymph % (Auto) 11.4 % 01/16/21 21:59 [place] % (Auto) 5.9 % 01/16/21 21:59 Eos % (Auto) 0.8 % 01/16/21 21:59 Baso % (Auto) 0.4 % 01/16/21 21:59 Neut # (Auto) 6.88 K/uL (1.4-6.5) H 01/16/21 21:59 Lymph # (Auto) 0.96 K/uL (1.2-3.4) L 01/16/21 21:59 [place] # (Auto) 0.50 K/uL (0.11-0.59) 01/16/21 21:59 Eos # (Auto) 0.07 K/uL (0-0.5) 01/16/21 21:59 Baso # (Auto) 0.03 K/uL (0-0.2) 01/16/21 21:59 Immature Gran # (Auto) 0.01 K/uL (0.00-0.02) 01/16/21 21:59 Sodium 143 mmol/L (136-145) 01/16/21 21:59 Potassium 3.3 mmol/L (3.5-5.1) L 01/16/21 21:59 Chloride 110 mmol/L (98-107) H 01/16/21 21:59 Carbon Dioxide 27 mmol/L (21-32) 01/16/21 21:59 Anion Gap 6.0 (3-11) 01/16/21 21:59 BUN 24 mg/dl (7-18) H 01/16/21 21:59 Creatinine 0.97 mg/dl (0.6-1.2) 01/16/21 21:59 Est Cr Clr Drug Dosing 55.8 ml/min 01/16/21 21:59 Est GFR ( Amer) 77.8 ml/min 01/16/21 21:59 Est GFR (Non-Af Amer) 67.2 ml/min 01/16/21 21:59 BUN/Creatinine Ratio 24.5 (10-20) H 01/16/21 21:59 Glucose 115 mg/dl (70-99) H 01/16/21 21:59 Calcium 9.6 mg/dl (8.5-10.1) 01/16/21 21:59 Total Bilirubin 0.5 mg/dl (0.2-1) 01/16/21 21:59 AST 11 U/L (15-37) L 01/16/21 21:59 ALT 19 U/L (12-78) 01/16/21 21:59 Alkaline Phosphatase 68 U/L (45-117) 01/16/21 21:59 Total Protein 7.3 gm/dl (6.4-8.2) 01/16/21 21:59 Albumin 4.1 gm/dl (3.4-5.0) 01/16/21 21:59 Globulin 3.2 gm/dl (2.5-4.0) 01/16/21 21:59 Albumin/Globulin Ratio 1.3 (0.9-2) 01/16/21 21:59 Lipase 285 U/L (73-393) 01/16/21 21:59 Urine Color Yellow 01/16/21 23:45 Urine Appearance Turbid (Clear) A 01/16/21 23:45 Urine pH 7.5 (4.5-7.5) 01/16/21 23:45 Ur Specific [place] 1.013 (1.000-1.030) 01/16/21 23:45 Urine Protein Negative (Negative) 01/16/21 23:45 Urine Glucose (UA) Negative (Negative) 01/16/21 23:45 Urine Ketones Negative (Negative) 01/16/21 23:45 Urine Blood Negative (Negative) 01/16/21 23:45 Urine Nitrite Negative (Negative) 01/16/21 23:45 Urine Bilirubin Negative (Negative) 01/16/21 23:45 Urine Urobilinogen Negative (Negative) 01/16/21 23:45 Ur Leukocyte Esterase Negative (Negative) 01/16/21 23:45 Urine WBC (Auto) 1-5 /hpf (0-5) 01/16/21 23:45 Urine RBC (Auto) 0-4 /hpf (0-4) 01/16/21 23:45 U Hyaline Cast (Auto) 0 /lpf (0-5) 01/16/21 23:45 U Epithel Cells (Auto) >30 /lpf (0-5) H 01/16/21 23:45 Urine Bacteria (Auto) Negative (Negative) 01/16/21 23:45 Amorphous Sediment Present (None Prsent) A 01/16/21 23:45 COVID-19 Eval Order Covid19 at [facility] 01/16/21 23:48 SARS-CoV-2 (PCR) NEGATIVE (Negative) 01/16/21 23:48 Diagnostic Findings [facility], [id number] CT Scan Report Patient: HANNAH HIGGINS Date: 01/16/21MR#: [id number]: [id number] E PROSPECT RDAcct ID:[id number]: Date: 1970City Zip: [place] [address]Qso: 51Location: EDSex: FRoom/Bed:Att Phy:Diagnosis: ABDOMINAL PAIN, ABDOMEN DISTENDEDPri Phy: PCP,NOService Date: 01/16/21Fa Phy:Interpreting Phy: Braulio Fontanez MDAdmit Phy: Ordering Phy: Nehemiah Jiménez MD cc: ~ ABDOMEN AND PELVIS CT WITHOUT CONTRAST CT DOSE: 387.54 mGy.cm HISTORY: nausea, left sided abd pain, vomiting TECHNIQUE: Multiaxial CT images of the abdomen and pelvis were performed without contrast. A dose lowering technique was utilized adhering to the principles of ALARA. COMPARISON STUDY: None. FINDINGS: Mild dependent changes seen at the lung bases. No pneumoperitoneum. No pneumatosis. No fractures within the visualized osseous structures. The unenhanced liver, gallbladder, adrenal glands, and kidneys are unremarkable. No renal stones or hydronephrosis. No retroperitoneal lymphadenopathy. Normal caliber abdominal aorta. There is a left retroaortic renal vein. The spleen and pancreatic tail are displaced inferiorly by the distended stomach. The stomach is fluid-filled and has abnormal configuration with the antrum overlying the gastric cardia. Therefore, this is concerning for a gastric volvulus. No dilated loops of small bowel identified. The bladder is unremarkable. Prior hysterectomy. Normal appendix. IMPRESSION: Distended and fluid-filled stomach with an abnormal configuration with the antrum overlying the gastric cardia. 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 Surgical consultation recommended. ACT 112: Negative or not required by law. Electronically signed by: Braulio Fontanez M.D. 01/16/2021 11:01 PM Dictated: 01/16/212244Transcribed: 01/16/212254 [facility] Patient: HANNAH HIGGINS (Female) : 68 Status: ER Date: 01/17/21 01:05 Room #: History: eval after ng tube placement Slices: [phone] Priors: Tech: Nemo Graham @ [phone] Exams: CT ABDOMEN & PELVIS Without Contrast Contrast: Accession Numbers: [id number] Preliminary Findings Only See Final Report For Complete Findings CT ABDOMEN & PELVIS Without Contrast: Comparison to January 17, 2021. There is a nasogastric tube extending into the stomach which is less distended than on the comparison study. There is an abnormal horizontal configuration of the stomach without signs of obstruction of the gastric inflow or outflow to suggest volvulus at this point in time. Moderate amount of stool in the cecum measuring 6 cm possible mild constipation. The appendix is normal. Mild gaseous distention of large and small bowel loops suggest mild ileus. No focal bowel wall inflammation is seen. The liver, gallbladder, spleen, pancreas, adrenal glands, and kidneys appear within normal limits. Skeletal structures appear within normal limits. Radiologist: Zachariah Higgins MD Study ready at 01:13 and initial results transmitted at 01:47 *This report constitutes a preliminary interpretation only. Non-acute findings felt to be unrelated to the clinical presentation may not be discussed in this report. The study will be interpreted and a final report will be generated by the local Radiologist the following shift. To reach the hospital radiology department call [phone]. If a discrepancy is found between the preliminary and final interpretations of this study, please notify us via our Client Portal at [email or web address] under QA Exams.You can also fax this report with a description of the discrepancy, or include the final report, to our daytime fax number [phone].If faxing, please indicate the severity of discrepancy using one of the following categories: [ ] 1 - Agree/Informational [ ] 2 - Unlikely to Affect Management [ ] 3 - Possible Eventual Change of Management [ ] 4 - Probable Immediate Change of Management For all other patient related information, please fax us at [phone]. [id number] Code Status & VTE Plan Code Status Full code VTE Prophylaxis Plan VTE Prophylaxis will be ordered: Yes PG Care Time/CCT Total # of Minutes Spent Total Time Spent with Patient: Total time spent is greater than 50% in coordination of care (as documented) at patient's floor/unit and/or counseling patient: Coding Level of Care Code 09762 OBS Care - Level 3 Diagnoses Acute gastric volvulus K31.89 Ileus K56.7 Nausea & vomiting R11.2 Hypokalemia E87.6 Previous section Z98.891 Hypothyroidism E03.9
[2021-01-17] MEDS ORDERED: HYDROmorphone INJ 0.5 MG/0.5 ML SYR IV STA (04:47)
[2021-01-17] MEDS ORDERED: ACETAMINOPHEN 1000 MG/100 ML IV IV PRN (06:32)
[2021-01-17] MEDS ORDERED: HYDROmorphone INJ 0.5 MG/0.5 ML SYR IV PRN (06:32)
[2021-01-17] MEDS ORDERED: ONDANSETRON INJ 2 MG/ML 2 ML VIAL IV PRN (06:32)
[2021-01-17] MEDS ORDERED: NSS + 20MEQ KCL 20 MEQ/1,000 ML BAG IV SCH (07:00)
--- NOTE | 2021-01-17 07:43 | XRay Report ---
KUB HISTORY: Status post placement of an enteric tube NGT placement COMPARISON: CT abdomen and pelvis 01/17/2021 FINDINGS: Status post placement of an enteric tube, distal tip projected superiorly within the left m idabdomen. Nonobstructive bowel gas pattern. The lower abdomen is outside the field of view. Roots of the left axilla. No renal calculi. No ureteral calculi. No pneumoperitoneum or pneumatosis. No fract ure. IMPRESSION: Status post placement of an enteric tube with distal tip in the expected location of the gastric body . ACT 112: Negative or not required by law. The above report was generated using voice recognition software. It may contain grammatical, syntax o r spelling errors. Electronically signed by: Thomas Payton M.D. 01/17/2021 7:42 AM
[2021-01-17] MEDS ORDERED: FAMOTIDINE 20 MG in SYRINGE 3 ML IV SCH (08:00)
--- NOTE | 2021-01-17 09:36 | CT Scan Report ---
ABDOMEN AND PELVIS CT WITHOUT CONTRAST CT DOSE: 432.12 mGy.cm HISTORY: Follow up study in a patient with suggested gastric volvulus. Status post placement of an en teric tube Eval after NG tube placement for suspected gastric TECHNIQUE: Multiaxial CT images of the abdomen and pelvis were performed without contrast. A dose lo wering technique was utilized adhering to the principles of ALARA. COMPARISON STUDY: CT abdomen pelvis 01/16/2021 FINDINGS: The imaged inferior cardiac chambers are unremarkable. Mild bibasilar atelectasis. No pneumatosis or pneumoperitoneum. Trace perisplenic ascites. The spleen is slightly displaced 5 abnormally positioned stomach. The pancreas, adrenal glands, gallbladder and liver appear unremarkable. Unremarkable liver kidneys, and urinary bladder. Hysterectomy. No adnexal mass lesion. Aorta and IVC are unremarkable. No adenopathy. Volvulus of the stomach is redemonstrated with a suggested mesentero-axial configuration. Mild inflam matory stranding surrounds the stomach. Status post placement of an enteric tube with distal tip in t he region of the gastric body. Slightly decreased gastric distention. No bowel obstruction or bowel w all thickening. Normal appendix. Unremarkable soft tissues and breast parenchyma. No acute fracture. IMPRESSION: 1. 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 Status post placem ent of an enteric tube terminating within the gastric body. There is slightly decreased gastric diste ntion. 2. Mild stranding surrounding the stomach with trace left upper quadrant abdominal ascites. ACT 112: Negative or not required by law. The above report was generated using voice recognition software. It may contain grammatical, syntax o r spelling errors. Electronically signed by: Thomas Payton M.D. 01/17/2021 9:35 AM
--- NOTE | 2021-01-17 10:29 | Surgery Progress Note ---
Date of Service January 17, 2021 Assessment & Plan (1) Acute gastric volvulus: Discussed imaging findings with patient. Persistent gastric volvulus following ng decompression. Discussed that I would again recommend surgical intervention with reduction of volvulus and gastropexy with g tube placement. While there is no clinical sign of ischemia yet on labs, with persistent volvulus. concern for ischemia developing remains. Reviewed that the tube would need to stay in for at least 6 weeks prior to removal to allow for the stomach to stick to the anterior abdominal wall. Discussed the possibility of endoscopic decompression but that this is generally reserved for patients who are too high risk for surgery and carries a risk of gastric perforation. As she is still reluctant to have surgery here (would prefer closer to home), would recommend transfer to larger facility. There is potential that she could have a laparoscopic procedure at a larger facility which would improve her recovery time. Risk of waiting (ischemia leading to a larger operation with need for partial gastrectomy) discussed. All questions answered. Transfer - patient prefers [facility]. Discussed with Dr. Vides. (2) Left sided abdominal pain: Due to gastric volvulus. (3) Nausea & vomiting: NG decompression Admission and Anticipated Discharge Date Admission Date: January 17, 2021 Subjective NG placed last night. [place] almost immediately better but still having crampy pain in the left upper quadrant, improved but not resolved. No further nausea or feeling of food backing up into esophagus. Sore with the ng tube. Bowels are functioning. Review of Systems Review of Systems: All systems reviewed & are unremarkable except as noted in HPI & below Physical Exam Constitutional: WD/WN, vitals as above Eyes: PERRL, conjunctivae normal, anicteric sclerae Neck: trachea midline Respiratory: normal respiratory effort, lungs clear to auscultation Cardiovascular: RRR, no murmur, no edema Gastrointestinal (Abdomen): Inspection/Auscultation: abdomen normal to inspection and normal bowel sounds; abdomen not distended Percussion/Palpation: + abdomen tender (LUQ ) and abdomen soft; no guarding (LUQ) and no hernia Musculoskeletal: no cyanosis or clubbing, extremities motor strength 5/5 Neurologic: CN's II-XI intact bilaterally and awake; no focal motor deficits Psychiatric: A+Ox3, euthymic affect Results & Data ([facility]) Vital Signs (Past 12 Hours) Vital Signs Temp Pulse Pulse Pulse Resp BP BP 01/17/21 07:25 36.9 C 94 H 18 108/73 01/17/21 05:30 36.7 C 82 16 126/79 01/17/21 05:00 81 14 117/72 01/17/21 04:30 81 13 116/79 01/17/21 04:00 82 14 123/76 01/17/21 03:30 105 H 18 113/56 L 01/17/21 03:00 83 13 111/73 01/17/21 02:30 80 14 127/81 01/17/21 02:00 75 14 142/89 H 01/17/21 01:30 74 14 126/77 01/17/21 01:08 94 H 17 141/97 H 01/17/21 01:05 98 H 01/16/21 23:30 93 H 17 01/16/21 23:00 80 16 01/16/21 22:48 87 16 137/84 01/16/21 22:47 89 20 137/84 01/16/21 22:44 95 H 20 Pulse Ox 01/17/21 07:25 100 01/17/21 05:30 98 01/17/21 05:00 97 01/17/21 04:30 98 01/17/21 04:00 98 01/17/21 03:30 97 01/17/21 03:00 92 01/17/21 02:30 97 01/17/21 02:00 99 01/17/21 01:30 97 01/17/21 01:08 97 01/17/21 01:05 01/16/21 23:30 99 01/16/21 23:00 100 01/16/21 22:48 99 01/16/21 22:47 99 01/16/21 22:44 Laboratory Results 01/17/21 01/16/21 01/16/21 Range/Units 08:34 23:48 23:48 WBC (4.8-10.8) K/uL RBC (4.2-5.4) M/uL Hgb (12.0-16.0) g/dL Hct (37-47) % MCV (80-100) fL MCH (25-34) pg MCHC (32-36) g/dL RDW Std Deviation (36.4-46.3) fL RDW Coeff of Quinn (11.5-14.5) % Plt Count (130-400) K/uL MPV (7.4-10.4) fL Immature Gran % (Auto) % Neut % (Auto) % Lymph % (Auto) % [place] % (Auto) % Eos % (Auto) % Baso % (Auto) % Neut # (Auto) (1.4-6.5) K/uL Lymph # (Auto) (1.2-3.4) K/uL [place] # (Auto) (0.11-0.59) K/uL Eos # (Auto) (0-0.5) K/uL Baso # (Auto) (0-0.2) K/uL Immature Gran # (Auto) (0.00-0.02) K/uL Sodium (136-145) mmol/L Potassium (3.5-5.1) mmol/L Chloride (98-107) mmol/L Carbon Dioxide (21-32) mmol/L Anion Gap (3-11) BUN (7-18) mg/dl Creatinine (0.6-1.2) mg/dl Est Cr Clr Drug Dosing ml/min Est GFR ( Amer) ml/min Est GFR (Non-Af Amer) ml/min BUN/Creatinine Ratio (10-20) Glucose (70-99) mg/dl Calcium (8.5-10.1) mg/dl Magnesium 2.4 (1.8-2.4) mg/dl Total Bilirubin (0.2-1) mg/dl AST (15-37) U/L ALT (12-78) U/L Alkaline Phosphatase (45-117) U/L Total Protein (6.4-8.2) gm/dl Albumin (3.4-5.0) gm/dl Globulin (2.5-4.0) gm/dl Albumin/Globulin Ratio (0.9-2) Lipase (73-393) U/L Urine Color Urine Appearance (Clear) Urine pH (4.5-7.5) Ur Specific Goodwin (1.000-1.030) Urine Protein (Negative) Urine Glucose (UA) (Negative) Urine Ketones (Negative) Urine Blood (Negative) Urine Nitrite (Negative) Urine Bilirubin (Negative) Urine Urobilinogen (Negative) Ur Leukocyte Esterase (Negative) Urine WBC (Auto) (0-5) /hpf Urine RBC (Auto) (0-4) /hpf U Hyaline Cast (Auto) (0-5) /lpf U Epithel Cells (Auto) (0-5) /lpf Urine Bacteria (Auto) (Negative) Amorphous Sediment (None Prsent) COVID-19 Eval Order Covid19 at [facility] SARS-CoV-2 (PCR) NEGATIVE (Negative) 01/16/21 01/16/21 01/16/21 Range/Units 23:45 21:59 21:59 WBC 8.45 (4.8-10.8) K/uL RBC 4.68 (4.2-5.4) M/uL Hgb 14.5 (12.0-16.0) g/dL Hct 41.7 (37-47) % MCV 89.1 (80-100) fL MCH 31.0 (25-34) pg MCHC 34.8 (32-36) g/dL RDW Std Deviation 39.2 (36.4-46.3) fL RDW Coeff of Quinn 12.2 (11.5-14.5) % Plt Count 290 (130-400) K/uL MPV 10.5 H (7.4-10.4) fL Immature Gran % (Auto) 0.1 % Neut % (Auto) 81.4 % Lymph % (Auto) 11.4 % [place] % (Auto) 5.9 % Eos % (Auto) 0.8 % Baso % (Auto) 0.4 % Neut # (Auto) 6.88 H (1.4-6.5) K/uL Lymph # (Auto) 0.96 L (1.2-3.4) K/uL [place] # (Auto) 0.50 (0.11-0.59) K/uL Eos # (Auto) 0.07 (0-0.5) K/uL Baso # (Auto) 0.03 (0-0.2) K/uL Immature Gran # (Auto) 0.01 (0.00-0.02) K/uL Sodium 143 (136-145) mmol/L Potassium 3.3 L (3.5-5.1) mmol/L Chloride 110 H (98-107) mmol/L Carbon Dioxide 27 (21-32) mmol/L Anion Gap 6.0 (3-11) BUN 24 H (7-18) mg/dl Creatinine 0.97 (0.6-1.2) mg/dl Est Cr Clr Drug Dosing 55.8 ml/min Est GFR ( Amer) 77.8 ml/min Est GFR (Non-Af Amer) 67.2 ml/min BUN/Creatinine Ratio 24.5 H (10-20) Glucose 115 H (70-99) mg/dl Calcium 9.6 (8.5-10.1) mg/dl Magnesium (1.8-2.4) mg/dl Total Bilirubin 0.5 (0.2-1) mg/dl AST 11 L (15-37) U/L ALT 19 (12-78) U/L Alkaline Phosphatase 68 (45-117) U/L Total Protein 7.3 (6.4-8.2) gm/dl Albumin 4.1 (3.4-5.0) gm/dl Globulin 3.2 (2.5-4.0) gm/dl Albumin/Globulin Ratio 1.3 (0.9-2) Lipase 285 (73-393) U/L Urine Color Yellow Urine Appearance Turbid A (Clear) Urine pH 7.5 (4.5-7.5) Ur Specific [place] 1.013 (1.000-1.030) Urine Protein Negative (Negative) Urine Glucose (UA) Negative (Negative) Urine Ketones Negative (Negative) Urine Blood Negative (Negative) Urine Nitrite Negative (Negative) Urine Bilirubin Negative (Negative) Urine Urobilinogen Negative (Negative) Ur Leukocyte Esterase Negative (Negative) Urine WBC (Auto) 1-5 (0-5) /hpf Urine RBC (Auto) 0-4 (0-4) /hpf U Hyaline Cast (Auto) 0 (0-5) /lpf U Epithel Cells (Auto) >30 H (0-5) /lpf Urine Bacteria (Auto) Negative (Negative) Amorphous Sediment Present A (None Prsent) COVID-19 Eval Order SARS-CoV-2 (PCR) (Negative) Diagnostic Findings CT scan done after ng placement shows improved gastric distention but persistent gastric volvulus.
[2021-01-17] MEDS ORDERED: diphenhydrAMINE 50 MG/ML VIAL IV STA (10:33)
[2021-01-17] MEDS ORDERED: MoRPHine SULFATE 2 MG/ML CARP IV STA (10:34)
--- NOTE | 2021-01-17 11:09 | Discharge Summary ---
Date of Service January 17, 2021 Admission HPI Per Admitting Provider The patient is a 51-year-old female with a past medical history including hypothyroidism and allergic rhinitis, who was traveling with her from [place], [place] to a local [place] to go [place] hunting. Her , who relays the history, reports that on their trip, they had stopped at a [employer], where she ate a few small pieces of food. Upon arrival, patient reported she had to go to the bathroom, but was unable to move her bowels, and due to the severity of pain, asked that she be taken to the emergency department. Work-up in the emergency department initially included a CT scan of abdomen pe lvis which suggested a possible gastric volvulus. The patient then had an NG tube placed to low intermittent suction, and repeat CT scan was more suggestive of a mild ileus and constipation. General surgical consult recommended the patient be assessed by gastroenterology for possible endoscopic treatment if symptoms persisted. Admission Exam Per Admitting Provider The patient is awake, but somewhat sedated, well developed and well nourished, normocephalic and atraumatic, lying in bed and in no acute distress after rec eiving Dilaudid IV and Ativan IV from the ED HEENT--PERRL, EOMI, mucous membranes and oropharynx dry. Neck--supple. No JVD. No bruits. Thyroid normal, trachea midline, no adenopathy. Heart--normal S1 and S2. No murmurs, rubs or gallops. Lungs--clear bilaterally, no respiratory distress, no accessory muscle use. Abdomen--decreased bowel sounds. Generalized abdominal tenderness. Mildly distended. Extremities--no cyanosis or clubbing. No edema. Dermatologic--normal skin turgor, normal color, no abnormal lymph nodes, no rash. Neurologic--cranial nerves II through XII grossly intact. Rheumatologic--limited exam Psychiatric--sedated due to pain Principal Diagnosis Gastric Volvulus Discharge Exam Constitutional well developed, well nourished and cooperative; + uncomfortable Eyes PERRL, conjunctivae normal, anicteric sclerae ENMT NGT in place, patent Neck trachea midline, no thyromegaly Respiratory normal respiratory effort, lungs clear to auscultation Cardiovascular RRR, no murmur, no edema Gastrointestinal (Abdomen) Inspection/Auscultation: abdomen normal to inspection and normal bowel sounds Percussion/Palpation: + abdomen tender (LUQ); no guarding and abdomen not rigid Musculoskeletal no cyanosis or clubbing, extremities motor strength 5/5 Skin no rashes, warm and dry Neurologic PERRL, EOMI, accommodation nl, no face palsy, no dysarthria Psychiatric Orientation: alert and oriented x 3 Affect: + tearful affect Lymphatic no cervical or axillary lymphadenopathy Discharge Data Allergies Allergy/AdvReac Type Severity Reaction Status Date / Time Penicillins Allergy Intermediate Hives Verified 01/16/21 22:17 Consultations 01/17/21 02:07 Consult General Surgery Routine ED Decision to Admit Stat 01/17/21 10:20 Burn CD for patient Routine Ordered Studies 01/16/21 21:56 CT abd pelvis wo con Stat KUB 01/17/21 00:22 CT abd pelvis wo con Urgent Hospital Course (1) Acute gastric volvulus: Acute gastric volvulus/mild ileus- CT on admission suggested acute gastric volvulus. No noted hiatal hernia General surgery consulted NGT placed initially feeling better but worsening pain and repeat CTAP obtained: * 1. 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 Status post placement of an enteric tube terminating within the gastric body. There is slightly decreased gastric distention. * 2. Mild stranding surrounding the stomach with trace left upper quadrant abdominal ascites. Patient remains with NGT, NPO NSS +20k @ 100cc/hr Pepcid IV BID Pain control Seen again this morning by general surgery --> * "Discussed imaging findings with patient and . While there is no clinical sign of ischemia yet on labs, she is very tender and concern for ischemia developing remains. Reviewed the use of nasogastric decompression and my recommendation for surgical intervention with reduction of the volvulus and gastropexy with gastrostomy tube. Reviewed that the tube would need to stay in for at least 6 weeks prior to removal to allow for the stomach to stick to the anterior abdominal wall. Discussed the possibility of endoscopic decompression but that this is generally reserved for patients who are too high risk for surgery and carries a risk of gastric perforation. * As she is reluctant to have surgery here (would prefer closer to home), we discussed ng placement and then repeating the CT scan. If better and volvulus spontaneously reduces with ng decompression, can admit here and watch for a day or two. If still present, she should strongly consider surgery - either here or closer to home. Risk of waiting (ischemia leading to a larger operation with need for partial gastrectomy) discussed. All questions answered." Patient from [place], traveled yesterday to [place] for the weekend --> decision based on Persistent gastric volvulus following ng decompression again rec surgical intervention w/ reduction of volvulus and gastropexy w G tube placement. No sx ischemia on labs, added lactic to AM labs --> CBC, CMP pending (prior labs from overnight) Lactic 0.8. No elevation of WBC at this time. Amorphous sediment in Urine.On continuous IVF, dehydration from inability for PO intake STAFF TRAINER Discussed with [facility], Dr. Case. Also minimally invasivist provider for endoscopic --> possible to do endoscopic decomp at their facility but will eval once there. Copied chart/labs/burned CD with imaging COVID --19 testing negative Arranging transportation via [facility] (2) Ileus: See above (3) Nausea & vomiting: See above -- no further vomiting NGT in place (4) Hypokalemia: Placed on IV fluids as noted, and repeat labs in a.m. (5) Previous section: History of previous C-sections x2 (6) Hypothyroidism: Held levothyroxine at this time Transported via [facility] for surgical/endoscopic intervention Total Time Total Time Spent Total Time Spent (In Minutes): 75 Discharge Plan Discharge Items Patient Disposition: Transfer Acute Care Hospital Reason For Visit: ILEUS Discharge Diagnosis: Acute Gastric Volvulus Activity: Per Instructions section Non-emergency contact: Primary Care Provider Call non-emergency contact if: you have any medication questions Follow-up/Referrals: PCP,NO [Primary Care Provider] - Diet: Nothing by Mouth Addtl Attending Provider Instructions: You have been hospitalized for abdominal pain and found to have a gastric volvulus. This has persisted despite NG tube placement for decompression and general surgery recommended transfer for surgical intervention. Discussed with [facility] and they are arranging transportation and imaging has been copied to a disk as well as copied chart for their review. NG tube to remain in place to suction during transportation. Take care! Pending Studies at Discharge: Yes Studies:: CBC, CMP, Lactic Stand-Alone Forms: My [facility] Skilled Items Patient informed of condition?: Yes DNR: No Discharge Level of Care: Other Communicable Disease: No Discharge Prognosis: Stable Lines: None and Peripheral IV Urinary Catheter: No Medications and DC Order Prescriptions: Continued levothyroxine [Synthroid] 50 mcg Tablet 50 mcg PO DAILY RF: 0 Loly-D 24 Hour 180-240 mg Tablet Extended Release 24 Hr 1 tab PO QAM RF: 0 topiramate 1.5 tab PO BID RF: 0 Discharge Orders: Discharge Order (Routine); Ordered 01/17/21 Ordered By: Linda Vides Admission Data Admit Date/Time: 01/17/21 04:10 Attending Provider: Dipesh Quiroz Admit Provider: Vikas Chung Primary Care Provider: PCP,NO Other Providers: Vikas Chung ; Cassandra Cruz Other Interventions: Discharge Summary Assessment (RN) Last Done: 01/17/21 11:36 Supervising Physician Co-Signing Physician Notes Attending Attestation & Discharge Note - Pt seen and examined, chart reviewed, discharge care plan d/w PA Linda Vides. I agree w/ the quiroz components of her documentation. 51yo female who had presented with abdominal pain. CT abd/pelvis with gastric volvulus. NG tube placed, seen by gen surg. Repeat CT abd/pelvis today without improvement in volvulus. Exact etiology of her volvulus is uncertain. Arrangements were made for patient to transfer to [facility]. Transfer to occur via air. She will have either surgical or endoscopic intervention to resolve the volvulus upon admission to [facility]. Discharge exam: gen - looks unwell, sleepy mouth - MM dry nose - NG tube in place heart - RRR, s1 s2 lungs - CTA b/l abd - mildly distended, BS+, tender upper abdomen, no HSM ext - no edema Dipesh Quiroz MD Coding Level of Care Code Admit/DC Same Day >8hr Level 3 Diagnoses Acute gastric volvulus K31.89 Ileus K56.7 Nausea & vomiting R11.2 Hypokalemia E87.6 Previous section Z98.891 Hypothyroidism E03.9
[2021-01-17 11:32] LABS: Basophils # (auto) 0.03 K/uL (0-0.2); Basophils % (auto) 0.5 %; Eosinophils # (auto) 0.08 K/uL (0-0.5); Eosinophils % (auto) 1.3 %; Hematocrit (blood only) 39.5 % (37-47); Hemoglobin 13.6 g/dL (12.0-16.0); Immature Granulocytes # (auto) 0.01 K/uL (0.00-0.02); Immature Granulocytes % (auto) 0.2 %; Lymphocytes # (auto) 1.48 K/uL (1.2-3.4); Lymphocytes % (auto) 24.7 %; Mean Corpuscular Volume 92.9 fL (80-100); Mean Platelet Volume 10.4 fL (7.4-10.4); Monocytes # (auto) 0.48 K/uL (0.11-0.59); Neutrophils % (auto) 65.3 %; Platelet Count 278 K/uL (130-400); RDW Coefficient of Variation 12.4 % (11.5-14.5); RDW Standard Deviation 42.3 fL (36.4-46.3); Red Blood Count 4.25 M/uL (4.2-5.4); White Blood Count 5.98 K/uL (4.8-10.8)
[2021-01-17 11:33] LABS: Mean Corpuscular Hgb Conc 34.4 g/dL (32-36)
[2021-01-17 11:54] LABS: Albumin Level 3.5 gm/dl (3.4-5.0); BUN Creatinine Ratio 20.4 (10-20); Calcium 8.6 mg/dl (8.5-10.1); Creatinine Clr Calc Pharmacy 66.3 ml/min; Est GFR (African American) 92.6 ml/min; Est GFR (Non-African American) 79.9 ml/min; Potassium 3.5 mmol/L (3.5-5.1)
[2021-01-17 11:57] LABS: Albumin Globulin Ratio 1.2 (0.9-2); Bilirubin,Total 0.4 mg/dl (0.2-1); Globulin 2.8 gm/dl (2.5-4.0); Total Protein 6.4 gm/dl (6.4-8.2)
== END 2021-01-17 12:30 | disposition short-term general hospital (02) ==
LOC: 3N 21:26 → ED 21:26 → SUATTDRO 01-17 04:10 → 3N 01-17 05:14